=== PATIENT | female | born 1965 | race Caucasian/White ===

== ENCOUNTER 2017-07-02 15:15 | Inpatient (IN) | payer BC ==
[~2017-07-02] VITALS: Ht 165.1 cm; Wt 83.7 kg
[2017-07-02] VITALS (8 sets, daily range): BP systolic 112–132; BP diastolic 68–80; PULSE 74–89; RESP 16–18; O2SAT 95–100
[2017-07-02] MEDS ORDERED: SODIUM CHLOR 0.9% 1000 ML INJ 1,000 ML IV SCH (15:33)
[2017-07-02 15:56] LABS: AUTOMATED NEUTROPHIL # 10.1 TH/MM3 (1.8-7.7); BASOPHIL % 0.4 % (0.0-2.0); EOSINOPHIL # 0.1 TH/MM3 (0-0.4); HEMATOCRIT 40.6 % (35.0-46.0); HEMOGLOBIN 13.6 GM/DL (11.6-15.3); LYMPH % 7.9 % (9.0-44.0); LYMPHOCYTE # 0.9 TH/MM3 (1.0-4.8); MEAN CELL VOLUME 88.1 FL (80.0-100.0); MEAN CORPUSCULAR HEMOGLOBIN 29.5 PG (27.0-34.0); MEAN CORPUSCULAR HGB CONC 33.5 % (32.0-36.0); MEAN PLATELET VOLUME 7.9 FL (7.0-11.0); MONO % 2.3 % (0.0-8.0); MONOCYTE # 0.3 TH/MM3 (0-0.9); NEUT % 88.4 % (16.0-70.0); PLATELET COUNT 262 TH/MM3 (150-450); RED BLOOD COUNT 4.61 MIL/MM3 (4.00-5.30); RED CELL DISTRIBUTION WIDTH 11.9 % (11.6-17.2); WHITE BLOOD COUNT 11.4 TH/MM3 (4.0-11.0)
--- NOTE | 2017-07-02 16:03 | PD ---
HPI Chief Complaint: Syncope/Near-Syncope Time Seen by Provider: 15:22 Travel History International Travel<30 days: No Contact w/Intl Traveler<30days: No Traveled to known affect area: No History of Present Illness HPI Patient was seen and examined in the presence of a nurse at all times This is a 51-year-old female with no significant past medical history who presents after a syncopal episode. She states that she does not usually drink but drank a large amount of alcohol last night. Earlier today, after having a bowel movement (non bloody, no melena) she bent forward to steel pickler some laundry when she began to feel lightheaded. She states that she then appears to have passed out. She remembers waking up with pain on the back of her head, pain on her nose. She had vomited in her sink. She does not remember any o fthis. She denies any unilateral weakness, numbness, tingling. She states that she has been otherwise well recently without fever, chills, cough, congestion, vomiting , diarrhea. She denies chest pain, shortness of breath, palpitations. No urinary complaints. Symptoms are moderate in severity. Onset gradual. Aggravated by standing. Alleviated by rest. No prior treatment. PFSH Past Medical History Medical History: Denies Significant Hx Tetanus Vaccination: > 5 Years Influenza Vaccination: No ?: Not Menopausal: Yes Tubal Ligation: Yes Past Surgical History Section: Yes Oral Surgery: Yes (SINUS SURGERY) Tonsillectomy: Yes Family History Family Myocardial Infarction: Yes (Father had sudden cardiac at age 48) Social History Alcohol Use: Yes (OCCAS) Tobacco Use: No Substance Use: No Allergies-Medications (Allergen,Severity, Reaction): Coded Allergies: codeine (Verified Allergy, Severe, TACHYCARDIA & RESP DISTRESS, 07/02/17) Reported Meds & Prescriptions Reported Meds & Active Scripts Active Review of Systems Except as stated in HPI: all other systems reviewed are Neg Physical Exam Narrative GENERAL: Alert, well nourished, well appearing patient resting on the bed in no acute distress. Vital Signs reviewed SKIN: Focused skin assessment warm/dry. HEAD: There is hematoma on the left posterior scalp Normocephalic. EYES: Pupils equal and round. No scleral icterus. No injection or drainage. ENT: No nasal bleeding or discharge. Mucous membranes pink and moist. There is abrasion on bridge of nose. Mild tenderness on bridge of nose. No septal hematoma. Normal occlusion. NECK: Trachea midline. No JVD. Spontaneous, painless full range of motion with no meningismus CARDIOVASCULAR: Regular rate and rhythm. No murmur appreciated. Extremities warm and well perfused with bounding peripheral pulses RESPIRATORY: No accessory muscle use. Clear to auscultation. Breath sounds equal bilaterally. Breathing easily and speaking in full sentences GASTROINTESTINAL: Abdomen soft, non-tender, nondistended. Normal bowel sounds. No rigid, rebound, guarding MUSCULOSKELETAL: No obvious deformities. No clubbing. No cyanosis. No edema. Compartments are soft NEUROLOGICAL: Awake and alert. No obvious cranial nerve deficits. Motor grossly within normal limits. Normal speech. Sensation intact. Normal gait. No pronator drift Data Data Last Documented VS Vital Signs Date Time Temp Pulse Resp B/P (MAP) Pulse Ox O2 Delivery O2 Flow Rate FiO2 07/02/17 17:52 78 18 122/71 (88) 95 Room Air Orders Orders Electrocardiogram (07/02/17 15:30) Complete Blood Count With Diff (07/02/17 15:30) Comprehensive Metabolic Panel (07/02/17 15:30) Magnesium (Mg) (07/02/17 15:30) Ckmb (Isoenzyme) Profile (07/02/17 15:30) Troponin I (07/02/17 15:30) Act Partial Throm Time (Ptt) (07/02/17 15:30) Prothrombin Time / Inr (Pt) (07/02/17 15:30) Chest, Single Ap (07/02/17 15:30) Ct Brain W/O Iv Contrast(Rout) (07/02/17 15:30) Ct Cerv Spine W/O Contrast (07/02/17 15:30) Blood Glucose (07/02/17 15:30) Ecg Monitoring (07/02/17 15:30) Iv Access Insert/Monitor (07/02/17 15:30) Oximetry (07/02/17 15:30) Orthostatic Vital Signs (07/02/17 15:30) Ct Facial Bones W/O Iv Cont (07/02/17 15:30) Sodium Chlor 0.9% 1000 Ml Inj (Ns 1000 M (07/02/17 15:33) Urinalysis - C+S If Indicated (07/02/17 16:06) CKMB (07/02/17 15:50) CKMB% (07/02/17 15:50) Tetanus/Diphtheria Tox Adult (Tetanus/Di (07/02/17 16:30) Ct Pulmonary Angiogram (07/02/17 16:51) Iohexol 350 Inj (Omnipaque 350 Inj) (07/02/17 17:23) Consult Cardiology (07/02/17 ) Admit To Inpatient (07/02/17 ) Vital Signs (Adult) LUKASZ.Q4H (07/02/17 18:22) Activity Oob With Assistance (07/02/17 18:22) Newspaper Peddler / Telemetry LUKASZ.Q8H (07/02/17 18:22) Inpatient Certification (07/02/17 ) ^ Fall Precautions (07/02/17 18:22) Aspirin (Aspirin) (07/02/17 18:30) Admit Order (Ed Use Only) (07/02/17 18:23) (Hub Use Only)Inp Phy Cons/Ref (07/02/17 ) Labs Laboratory Tests Test 07/02/17 15:50 White Blood Count 11.4 TH/MM3 Red Blood Count 4.61 MIL/MM3 Hemoglobin 13.6 GM/DL Hematocrit 40.6 % Mean Corpuscular Volume 88.1 FL Mean Corpuscular Hemoglobin 29.5 PG Mean Corpuscular Hemoglobin Concent 33.5 % Red Cell Distribution Width 11.9 % Platelet Count 262 TH/MM3 Mean Platelet Volume 7.9 FL Neutrophils (%) (Auto) 88.4 % Lymphocytes (%) (Auto) 7.9 % Monocytes (%) (Auto) 2.3 % Eosinophils (%) (Auto) 1.0 % Basophils (%) (Auto) 0.4 % Neutrophils # (Auto) 10.1 TH/MM3 Lymphocytes # (Auto) 0.9 TH/MM3 Monocytes # (Auto) 0.3 TH/MM3 Eosinophils # (Auto) 0.1 TH/MM3 Basophils # (Auto) 0.0 TH/MM3 CBC Comment DIFF FINAL Differential Comment Prothrombin Time 10.6 SEC Prothromb Time International Ratio 1.0 RATIO Activated Partial Thromboplast Time 23.8 SEC Urine Color YELLOW Urine Turbidity CLEAR Urine pH 6.0 Urine Specific [place] 1.005 Urine Protein NEG mg/dL Urine Glucose (UA) NEG mg/dL Urine Ketones NEG mg/dL Urine Occult Blood NEG Urine Nitrite NEG Urine Bilirubin NEG Urine Leukocyte Esterase NEG Urine RBC 0-3 /hpf Urine Squamous Epithelial Cells 0-5 /hpf Microscopic Urinalysis Comment CULT NOT INDICATED Blood Urea Nitrogen 15 MG/DL Creatinine 0.95 MG/DL Random Glucose 98 MG/DL Total Protein 7.5 GM/DL Albumin 4.1 GM/DL Calcium Level 8.9 MG/DL Magnesium Level 2.3 MG/DL Alkaline Phosphatase 91 U/L Aspartate Amino Transf (AST/SGOT) 27 U/L Alanine Aminotransferase (ALT/SGPT) 33 U/L Total Bilirubin 0.3 MG/DL Sodium Level 140 MEQ/L Potassium Level 3.9 MEQ/L Chloride Level 107 MEQ/L Carbon Dioxide Level 26.6 MEQ/L Anion Gap 6 MEQ/L Estimat Glomerular Filtration Rate 62 ML/MIN Total Creatine Kinase 192 U/L Creatine Kinase MB 2.8 NG/ML Troponin I 0.19 NG/ML MDM Medical Decision Making Medical Screen Exam Complete: Yes Emergency Medical Condition: Yes Medical Record Reviewed: Yes Interpretation(s) EKG shows sinus rhythm with a rate of 80. No acute ST elevation Laboratory Tests Test 07/02/17 15:50 White Blood Count 11.4 TH/MM3 Red Blood Count 4.61 MIL/MM3 Hemoglobin 13.6 GM/DL Hematocrit 40.6 % Mean Corpuscular Volume 88.1 FL Mean Corpuscular Hemoglobin 29.5 PG Mean Corpuscular Hemoglobin Concent 33.5 % Red Cell Distribution Width 11.9 % Platelet Count 262 TH/MM3 Mean Platelet Volume 7.9 FL Neutrophils (%) (Auto) 88.4 % Lymphocytes (%) (Auto) 7.9 % Monocytes (%) (Auto) 2.3 % Eosinophils (%) (Auto) 1.0 % Basophils (%) (Auto) 0.4 % Neutrophils # (Auto) 10.1 TH/MM3 Lymphocytes # (Auto) 0.9 TH/MM3 Monocytes # (Auto) 0.3 TH/MM3 Eosinophils # (Auto) 0.1 TH/MM3 Basophils # (Auto) 0.0 TH/MM3 CBC Comment DIFF FINAL Differential Comment Prothrombin Time 10.6 SEC Prothromb Time International Ratio 1.0 RATIO Activated Partial Thromboplast Time 23.8 SEC Urine Color YELLOW Urine Turbidity CLEAR Urine pH 6.0 Urine Specific [place] 1.005 Urine Protein NEG mg/dL Urine Glucose (UA) NEG mg/dL Urine Ketones NEG mg/dL Urine Occult Blood NEG Urine Nitrite NEG Urine Bilirubin NEG Urine Leukocyte Esterase NEG Urine RBC 0-3 /hpf Urine Squamous Epithelial Cells 0-5 /hpf Microscopic Urinalysis Comment CULT NOT INDICATED Blood Urea Nitrogen 15 MG/DL Creatinine 0.95 MG/DL Random Glucose 98 MG/DL Total Protein 7.5 GM/DL Albumin 4.1 GM/DL Calcium Level 8.9 MG/DL Magnesium Level 2.3 MG/DL Alkaline Phosphatase 91 U/L Aspartate Amino Transf (AST/SGOT) 27 U/L Alanine Aminotransferase (ALT/SGPT) 33 U/L Total Bilirubin 0.3 MG/DL Sodium Level 140 MEQ/L Potassium Level 3.9 MEQ/L Chloride Level 107 MEQ/L Carbon Dioxide Level 26.6 MEQ/L Anion Gap 6 MEQ/L Estimat Glomerular Filtration Rate 62 ML/MIN Total Creatine Kinase 192 U/L Creatine Kinase MB 2.8 NG/ML Troponin I 0.19 NG/ML Last [address] Angiography 07/02/17 1651 Signed Impressions: Service Date/Time: June 17:16 - CONCLUSION: No evidence of pulmonary embolism Fred Dias MD Maxillofacial CT 07/02/17 1530 Signed Impressions: Service Date/Time: June 16:00 - CONCLUSION: No evidence of facial bone fracture Fred Dias MD Head CT 07/02/17 1530 Signed Impressions: Service Date/Time: June 16:00 - CONCLUSION: No acute intracranial process. Ferd Dias MD Chest X-Ray 07/02/17 1530 Signed Impressions: Service Date/Time: June 15:34 - CONCLUSION: No acute disease. Andrew Lawrence MD Cervical Spine CT 07/02/17 1530 Signed Impressions: Service Date/Time: June 16:00 - CONCLUSION: 1. Moderate degenerative disease at C5-6. 2. No evidence of acute bony or soft tissue abnormality. 3. Normal cervical alignment. Anrdew Lawrence MD Differential Diagnosis Syncope, arrhythmia, dehydration, vagal episode, orthostatic hypotension, unstable/atypical angina, PE, fracture, contusion, subdural hematoma Narrative Course The patient was placed on the child monitor. IV access was established. EKG , chest x-ray, labs and imaging were performed. Patient was given IV fluid bolus. She feels much better after IV fluids. Tetanus immunization was updated. Patient has elevated troponin. She adamantly and repeatedly denies any current or previous chest pain or shortness of breath. Her EKG is normal. I spoke with Dr. Pires who recommended admission to [facility]. He agreed with plan for aspirin but recommended against heparin drip at this time. He came and saw the patient in the emergency department. I reviewed the results of the workup with her. I also spoke with the admitting hospitalist. Diagnosis Primary Impression: NSTEMI, initial episode of care Additional Impression: Syncope and collapse Admitting Information Admitting Physician Requests: it Ibis Hernandez MD Jul 02, 2017 16:03
[2017-07-02 16:07] LABS: CHLORIDE 107 MEQ/L (98-107); SODIUM (NA) 140 MEQ/L (136-145)
[2017-07-02 16:10] LABS: ALBUMIN 4.1 GM/DL (3.4-5.0); BICARBONATE 26.6 MEQ/L (21.0-32.0); BLOOD UREA NITROGEN 15 MG/DL (7-18); CALCIUM 8.9 MG/DL (8.5-10.1); GLUCOSE,RANDOM 98 MG/DL (74-106); MAGNESIUM 2.3 MG/DL (1.5-2.5)
[2017-07-02 16:13] LABS: ALT (GPT) 33 U/L (10-53); AST (GOT) 27 U/L (15-37); CREATININE 0.95 MG/DL (0.50-1.00); GLOMERULAR FILTRATION RATE 62 ML/MIN (>89)
[2017-07-02 16:15] LABS: TOTAL BILIRUBIN ADULT 0.3 MG/DL (0.2-1.0); TOTAL PROTEIN 7.5 GM/DL (6.4-8.2)
[2017-07-02 16:16] LABS: ALKALINE PHOSPHATASE 91 U/L (45-117)
[2017-07-02 16:18] LABS: BILIRUBIN, URINE NEG (NEG); BLOOD, URINE NEG (NEG); GLUCOSE,URINE NEG (NEG); KETONE, URINE NEG (NEG); NITRITE,URINE NEG (NEG); TROPONIN I 0.19 NG/ML (0.02-0.05); URINE LEUKOCYTE ESTERASE NEG (NEG)
[2017-07-02 16:26] LABS: RBC, URINE 0-3 /hpf (0-3); SQUAMOUS EPITHELIAL CELL URINE 0-5 /hpf (0-5); URINE COLOR YELLOW (YELLW/STRAW)
[2017-07-02 16:27] LABS: PROTHROMBIN TIME - PATIENT 10.6 SEC (9.8-11.6)
--- NOTE | 2017-07-02 16:29 | RADRPT ---
EXAM DATE/TIME: 07/02/2017 16:00 [facility] COMPARISON: No previous studies available for comparison. INDICATIONS : Syncopal episode. Posterior head pain, jaw pain, neck pain and vomiting. RADIATION DOSE: 62.97 CTDIvol (mGy) MEDICAL HISTORY : None SURGICAL HISTORY : None. ENCOUNTER: Initial ACUITY: 1 day PAIN SCALE: 5/10 LOCATION: cranial TECHNIQUE: Multiple contiguous axial images were obtained of the head. Using automated exposure control and adj ustment of the mA and/or kV according to patient size, radiation dose was kept as low as reasonably a chievable to obtain optimal diagnostic quality images. DICOM format image data is available electro nically for review and comparison. FINDINGS: The ventricles are symmetric and normal. No abnormal extra-axial fluid collections are identified. Th ere is no evidence of intracranial hemorrhage or mass. There is nothing to suggest acute infarction. There is prominent left parietal high convexity scalp swelling. No evidence of underlying fracture. M inimal mucosal disease and occasional facial sinuses. CONCLUSION: No acute intracranial process. Fred Dias MD on July 02, 2017 at 16:27 Board Certified Radiologist. This report was verified electronically.
[2017-07-02] MEDS ORDERED: TETANUS/DIPHTHERIA TOXOID ADULT 0.5 ML VIAL IM ONE (16:30)
--- NOTE | 2017-07-02 16:34 | RADRPT ---
EXAM DATE/TIME: 07/02/2017 16:00 [facility] COMPARISON: No previous studies available for comparison. INDICATIONS : Syncopal episode. Posterior head pain, jaw pain, neck pain and vomiting. RADIATION DOSE: 25.38 CTDIvol (mGy) MEDICAL HISTORY : None SURGICAL HISTORY : None. ENCOUNTER: Initial ACUITY: 1 day PAIN SCORE: 5/10 LOCATION: facial TECHNIQUE: Volumetric scanning of the facial bones was performed. Using automated exposure control and adjustme nt of the mA and/or kV according to patient size, radiation dose was kept as low as reasonably achiev able to obtain optimal diagnostic quality images. DICOM format image data is available electronicall y for review and comparison. FINDINGS: There is mild mucosal thickening and occasional facial sinuses. There appears to been previous sinus surgery. There is no evidence of facial bone fracture. The orbits are symmetric and unremarkable. CONCLUSION: No evidence of facial bone fracture Fred Dias MD on July 02, 2017 at 16:31 Board Certified Radiologist. This report was verified electronically.
--- NOTE | 2017-07-02 16:45 | RADRPT ---
EXAM DATE/TIME: 07/02/2017 15:34 [facility] COMPARISON: No previous studies available for comparison. INDICATIONS : Patient states she passed out, then woke up vomitting with shortness of breath. MEDICAL HISTORY : None. SURGICAL HISTORY : Breast biopsy. ENCOUNTER: Initial ACUITY: 1 day PAIN SCORE: 0/10 LOCATION: Bilateral chest FINDINGS: A single view of the chest demonstrates the lungs to be symmetrically aerated without evidence of mas s, infiltrate or effusion. The cardiomediastinal contours are unremarkable. Osseous structures are intact. CONCLUSION: No acute disease. Andrew Lawrence MD on July 02, 2017 at 16:43 Board Certified Radiologist. This report was verified electronically.
--- NOTE | 2017-07-02 17:03 | RADRPT ---
EXAM DATE/TIME: 07/02/2017 16:00 [facility] COMPARISON: No previous studies available for comparison. INDICATIONS : Syncopal episode. Posterior head pain, jaw pain, neck pain and vomiting. RADIATION DOSE: 26.33 CTDIvol (mGy) MEDICAL HISTORY : None SURGICAL HISTORY : None. ENCOUNTER: Initial ACUITY: 1 day PAIN SCALE: 2/10 LOCATION: neck TECHNIQUE: Volumetric scanning of the cervical spine was performed. Multiplanar reconstructions in the sagittal, coronal and oblique axial planes were performed. Using automated exposure control and adjustment o f the mA and/or kV according to patient size, radiation dose was kept as low as reasonably achievable to obtain optimal diagnostic quality images. DICOM format image data is available electronically f or review and comparison. FINDINGS: VERTEBRAE: Normal vertebral body height. ALIGNMENT: No evidence of subluxation. C2-C3: The bony spinal canal is normal in size. No evidence of disc bulge or herniation. The neural forami na are bilaterally patent. C3-C4: The bony spinal canal is normal in size. No evidence of disc bulge or herniation. The neural forami na are bilaterally patent. C4-C5: The bony spinal canal is normal in size. No evidence of disc bulge or herniation. The neural forami na are bilaterally patent. C5-C6: Moderate degenerative disc disease with disc space narrowing, end plate sclerosis and marginal spondy losis is noted. C6-C7: The bony spinal canal is normal in size. No evidence of disc bulge or herniation. The neural forami na are bilaterally patent. C7-T1: The bony spinal canal is normal in size. No evidence of disc bulge or herniation. The neural forami na are bilaterally patent. CONCLUSION: 1. Moderate degenerative disease at C5-6. 2. No evidence of acute bony or soft tissue abnormality. 3. Normal cervical alignment. Andrew Lawrence MD on July 02, 2017 at 17:00 Board Certified Radiologist. This report was verified electronically.
[2017-07-02] MEDS ORDERED: IOHEXOL 350 MG/ML 10 ML VIAL (for RAD DIAG) IVCONTRAST ONE (17:23)
--- NOTE | 2017-07-02 17:41 | RADRPT ---
EXAM DATE/TIME: 07/02/2017 17:16 [facility] COMPARISON: No previous studies available for comparison. INDICATIONS : Syncopal episode. Evaluate for pulmonary embolism. IV CONTRAST: 75 cc Omnipaque 350 (iohexol) IV RADIATION DOSE: 12.44 CTDIvol (mGy) MEDICAL HISTORY : None SURGICAL HISTORY : Sinus surgery. ENCOUNTER: Initial ACUITY: 1 day PAIN SCALE: 0/10 LOCATION: chest TECHNIQUE: Volumetric scanning of the chest was performed using a pulmonary embolism protocol MIP images were re constructed. Using automated exposure control and adjustment of the mA and/or kV according to patien t size, radiation dose was kept as low as reasonably achievable to obtain optimal diagnostic quality images. DICOM format image data is available electronically for review and comparison. Follow-up recommendations for detected pulmonary nodules are based at a minimum on nodule size and pa tient risk factors according to Fleischner Society Guidelines. FINDINGS: PULMONARY ARTERIES: No filling defects are seen in the pulmonary arteries through the segmental level. LUNGS: There is no consolidation or pneumothorax . No concerning pulmonary nodule is visualized. PLEURAE: There is no pleural thickening or pleural effusion. MEDIASTINUM: There is good visualization of the great vessels of the middle mediastinum. No evidence of mediastin al or hilar adenopathy/mass. MUSCULOSKELETAL: Within normal limits for patient age. MISCELLANEOUS: Hepatic cysts. CONCLUSION: No evidence of pulmonary embolism Fred Dias MD on July 02, 2017 at 17:35 Board Certified Radiologist. This report was verified electronically.
[2017-07-02] MEDS ORDERED: ASPIRIN 325 MG TAB PO ONE (18:30)
--- NOTE | 2017-07-02 19:28 | HHI.HP ---
[facility] Primary [facility] Physician No Primary Care Physician Admission Diagnosis Syncope, elevated troponin, and concussion Diagnoses: Chief Complaint: fall, loss of consciousness Travel History International Travel<30 Days: No Contact w/Intl Traveler <30 Da: No Traveled to Known Affected Are: No History of Present Illness 51-year-old white female being admitted for possible N STEMI Patient was in her usual state of health until earlier this morning when she bent down and her son's bathroom to pear picker some towels and felt very lightheaded. She stood up and ambulated to the kitchen but still felt very lightheaded and then she has a poor recollection of what happened after that. She remembers waking up with a vague memory where she was dazed state lying in bed and somehow being able to ambulate over to the bathroom to vomit some dark emesis, denies any bloody component. Patient then went over to a chair and sat down and eventually she says she is able to fully regain consciousness and sharpness. She noted that she had some pain in the back of her head and noted a bruise and also noted a very red nose as well. She does report having some bloody drainage from her left nostril temporarily that self resolved. Patient denies having any shortness of breath, chest pain, or palpitations before during or after this entire episode. She denies any tongue biting, urinary incontinence, or fecal incontinence. She denies having any focal numbness, tingling, or weakness in any of her extremities. Denies having any acute unilateral visual field changes or vision loss. Denies any abdominal pain. Review of Systems Except as stated in HPI: all other systems reviewed are Neg Past Family Social History Past Medical History Migraines in the past Past Surgical History Allergies: Coded Allergies: codeine (Verified Allergy, Severe, TACHYCARDIA & RESP DISTRESS, 07/02/17) Family History 3 brothers with type 1 diabetes, one brother of throat cancer, the other one of suspected hypoglycemia from insulin overdose, father of heart attack before the age of 50 Social History Denies smoking. Reports drinking socially. 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 EYES: Pupils equal and round. No scleral icterus. No injection or drainage. ENT: No nasal bleeding or discharge. Mucous membranes pink and moist. TMs clear and intact. No Reynolds sign evident; no mastoid TTP BL CARDIOVASCULAR: Regular rate and rhythm. no murmurs RESPIRATORY: No accessory muscle use. Clear to auscultation. Breath sounds equal bilaterally. GASTROINTESTINAL: Abdomen soft, non-tender, nondistended. Hepatic and splenic margins not palpable. Extremities: No clubbing, cyanosis, or edema. No obvious deformities. MUSCULOSKELETAL: grossly intact ROM with adequate muscle bulk and tone for age and habitus. NEUROLOGICAL: Awake and alert. No obvious cranial nerve deficits. No facial droop nor slurred speech noted. Patellar reflexes are +2 in bilateral lower extremities. EOMI. No nystagmus noted. Uvula and tongue are midline. intact sensation to light finger touch symmetrically over face distal upper extremities and lower extremities BL. PSYCHIATRIC: Appropriate mood and affect; insight and judgment normal. Laboratory Laboratory Tests Test 07/02/17 15:50 White Blood Count 11.4 Red Blood Count 4.61 Hemoglobin 13.6 Hematocrit 40.6 Mean Corpuscular Volume 88.1 Mean Corpuscular Hemoglobin 29.5 Mean Corpuscular Hemoglobin Concent 33.5 Red Cell Distribution Width 11.9 Platelet Count 262 Mean Platelet Volume 7.9 Neutrophils (%) (Auto) 88.4 Lymphocytes (%) (Auto) 7.9 Monocytes (%) (Auto) 2.3 Eosinophils (%) (Auto) 1.0 Basophils (%) (Auto) 0.4 Neutrophils # (Auto) 10.1 Lymphocytes # (Auto) 0.9 Monocytes # (Auto) 0.3 Eosinophils # (Auto) 0.1 Basophils # (Auto) 0.0 CBC Comment DIFF FINAL Differential Comment Prothrombin Time 10.6 Prothromb Time International Ratio 1.0 Activated Partial Thromboplast Time 23.8 Urine Color YELLOW Urine Turbidity CLEAR Urine pH 6.0 Urine Specific [place] 1.005 Urine Protein NEG Urine Glucose (UA) NEG Urine Ketones NEG Urine Occult Blood NEG Urine Nitrite NEG Urine Bilirubin NEG Urine Leukocyte Esterase NEG Urine RBC 0-3 Urine Squamous Epithelial Cells 0-5 Microscopic Urinalysis Comment CULT NOT INDICATED Blood Urea Nitrogen 15 Creatinine 0.95 Random Glucose 98 Total Protein 7.5 Albumin 4.1 Calcium Level 8.9 Magnesium Level 2.3 Alkaline Phosphatase 91 Aspartate Amino Transf (AST/SGOT) 27 Alanine Aminotransferase (ALT/SGPT) 33 Total Bilirubin 0.3 Sodium Level 140 Potassium Level 3.9 Chloride Level 107 Carbon Dioxide Level 26.6 Anion Gap 6 Estimat Glomerular Filtration Rate 62 Total Creatine Kinase 192 Creatine Kinase MB 2.8 Troponin I 0.19 Result Diagram: 07/02/17 1550 07/02/17 [address] Angiography 07/02/17 1651 Signed Impressions: Service Date/Time: June 17:16 - CONCLUSION: No evidence of pulmonary embolism Fred Dias MD Maxillofacial CT 07/02/17 1530 Signed Impressions: Service Date/Time: June 16:00 - CONCLUSION: No evidence of facial bone fracture Fred Dias MD Head CT 07/02/17 1530 Signed Impressions: Service Date/Time: June 16:00 - CONCLUSION: No acute intracranial process. Fred Dias MD Chest X-Ray 07/02/17 1530 Signed Impressions: Service Date/Time: June 15:34 - CONCLUSION: No acute disease. Andrew Lawrence MD Cervical Spine CT 07/02/17 1530 Signed Impressions: Service Date/Time: June 16:00 - CONCLUSION: 1. Moderate degenerative disease at C5-6. 2. No evidence of acute bony or soft tissue abnormality. 3. Normal cervical alignment. MD Charli Love VTE Risk Assessment Charli VTE Risk Assessment: Mod/High Risk (score >= 2) Vanrini Risk Assessment Model Point Value = 1 Point Value = 2 Point Value = 3 Point Value = 5 Age 41-60 Minor surgery BMI > 25 kg/m2 Swollen legs Varicose veins or History of unexplained or recurrent spontaneous Oral contraceptives or hormone replacement Sepsis (< 1 month) Serious lung disease, including pneumonia (< 1 month) Abnormal pulmonary function Acute myocardial infarction Congestive heart failure (< 1 month) History of inflammatory bowel disease Medical patient at bed rest Age 61-74 Arthroscopic surgery Major open surgery (> 45 min) Laparoscopic surgery (> 45 min) Malignancy Confined to bed (> 72 hours) Immobilizing plaster cast Central venous access Age >= 75 History of VTE Family history of VTE Factor V Leiden Prothrombin [id number] Lupus anticoagulant Anticardiolipin antibodies Elevated serum homocysteine Heparin-induced thrombocytopenia Other congenital or acquired thrombophilia Stroke (< 1 month) Elective arthroplasty Hip, pelvis, or leg fracture Acute spinal cord injury (< 1 month) Prophylaxis Regimen Total Risk Factor Score Risk Level Prophylaxis Regimen 0-1 Low Early ambulation 2 Moderate Order ONE of the following: *Sequential Compression Device (SCD) *Heparin 5000 units SQ BID 3-4 Higher Order ONE of the following medications: *Heparin 5000 units SQ TID *Enoxaparin/Lovenox 40 mg SQ daily (WT < 150 kg, CrCl > 30 mL/min) *Enoxaparin/Lovenox 30 mg SQ daily (WT < 150 kg, CrCl > 10-29 mL/min) *Enoxaparin/Lovenox 30 mg SQ BID (WT < 150 kg, CrCl > 30 mL/min) AND/OR *Sequential Compression Device (SCD) 5 or more Highest Order ONE of the following medications: *Heparin 5000 units SQ TID (Preferred with Epidurals) *Enoxaparin/Lovenox 40 mg SQ daily (WT < 150 kg, CrCl > 30 mL/min) *Enoxaparin/Lovenox 30 mg SQ daily (WT < 150 kg, CrCl > 10-29 mL/min) *Enoxaparin/Lovenox 30 mg SQ BID (WT < 150 kg, CrCl > 30 mL/min) AND *Sequential Compression Device (SCD) Assessment and Plan Problem List: (1) NSTEMI, initial episode of care ICD Code: I21.4 - Non-ST elevation (NSTEMI) myocardial infarction (2) Syncope and collapse ICD Code: R55 - Syncope and collapse (3) Syncope anginosa ICD Code: I20.8 - Other forms of angina pectoris (4) Concussion ICD Code: S06.0X9A - Concussion with loss of consciousness of unspecified duration, initial encounter Assessment and Plan 51-year-old white female being admitted for syncope Syncope - With elevated troponin, investigating cardiac etiology is imperative for a possible NSTEMI. I independently reviewed EKG and see sinus rhythm. We will trend troponins, place on telemetry. Cardiology consulted. Aspirin given, will hold any further doses for now given epistaxis hx w/ substantial cranial contusions until cleared by neurology or insisted by cardiology. -orthostatic v/s overall negative. -CT angiogram is negative for pulmonary embolism,. s/p fluid bolus. Amnesia 2/2 possible concussion - CT head neg. Wonder if this is due to prolonged convulsive syncope versus concussion. Will obtain B12, TSH levels for now. - neurology consult - fall precautions - neurochecks w/ telemetry given amnesia to monitor for signs of ICP Facial contusion w/ epistaxis - possibly fx not seen on CT vs soft tissue contusion/tear within nostrils; monitor; will hold any further doses of aspirin for now until cleared by neurology SCDs Physician Certification 2 Midnight Certification Type: Admission for Inpatient Services Order for Inpatient Services The services are ordered in accordance with Medicare regulations or non- Medicare payer requirements, as applicable. In the case of services not specified as inpatient-only, they are appropriately provided as inpatient services in accordance with the 2-midnight benchmark. Estimated LOS (days): 2 2 days is the estimated time the patient will need to remain in the hospital, assuming treatment plan goals are met and no additional complications. Post-Hospital Plan: Not yet determined Jordon Hearn MD Jul 02, 2017 19:28
[2017-07-03] VITALS (9 sets, daily range): BP systolic 111–132; BP diastolic 67–81; PULSE 67–79; RESP 12–19; TEMP 97.9–98.7; O2SAT 97–100
[2017-07-03 02:16] LABS: AUTOMATED NEUTROPHIL # 3.8 TH/MM3 (1.8-7.7); BASOPHIL % 0.5 % (0.0-2.0); EOSINOPHIL # 0.3 TH/MM3 (0-0.4); EOSINOPHIL % 4.4 % (0.0-4.0); HEMATOCRIT 33.7 % (35.0-46.0); HEMOGLOBIN 11.7 GM/DL (11.6-15.3); LYMPH % 32.7 % (9.0-44.0); LYMPHOCYTE # 2.3 TH/MM3 (1.0-4.8); MEAN CELL VOLUME 86.4 FL (80.0-100.0); MEAN CORPUSCULAR HGB CONC 34.8 % (32.0-36.0); MEAN PLATELET VOLUME 7.9 FL (7.0-11.0); MONO % 9.1 % (0.0-8.0); MONOCYTE # 0.7 TH/MM3 (0-0.9); NEUT % 53.3 % (16.0-70.0); PLATELET COUNT 213 TH/MM3 (150-450); RED CELL DISTRIBUTION WIDTH 12.6 % (11.6-17.2); WHITE BLOOD COUNT 7.2 TH/MM3 (4.0-11.0)
[2017-07-03 02:31] LABS: BICARBONATE 29.8 MEQ/L (21.0-32.0); CALCIUM 8.2 MG/DL (8.5-10.1); CREATININE 0.95 MG/DL (0.50-1.00); MAGNESIUM 2.2 MG/DL (1.5-2.5)
[2017-07-03 02:35] LABS: TROPONIN I 0.07 NG/ML (0.02-0.05)
--- NOTE | 2017-07-03 07:06 | MB ---
cc: CALE ZIEGLER M.D. DATE OF CONSULTATION 07/02/2017 REASON FOR CONSULTATION Lilibeth is a very pleasant 51-year-old lady. She presented to the ER after a syncopal event. She describes having a bowel movement walking across the hallway to picker/puller her son's laundry. She then became lightheaded and then she does not recall any further events other than "waking up" and 45 minutes elapsing on her cell phone. She did have some head trauma with a negative head CT in the ER. She denies any associated chest pain, shortness of breath, bowel or bladder incontinence, focal weakness, numbness or other focal neurologic complaints. Denies any GI or bleeding, PND, or orthopnea. PAST MEDICAL HISTORY As per history of present illness. She has a history of: 1. Sinus surgery 2. section 3. Tonsillectomy FAMILY HISTORY Father had a cardiac at the age of 48. SOCIAL HISTORY Drinks alcohol occasionally. Denies tobacco use. ALLERGIES CODEINE MEDICATIONS PRIOR TO ADMISSION Medications in the ER Aspirin 325 once and started daily. PHYSICAL EXAM Sats 95% on room air, blood pressure 122/71, pulse 78, respiratory rate 18. GENERAL: She is alert and oriented times three in no acute distress. NECK: Supple. No JVD or bruits. CARDIOVASCULAR: S1 and S2. No murmurs, rubs or gallops. LUNGS: Clear to auscultation bilaterally. ABDOMEN: Soft, nontender, positive bowel sounds. EXTREMITIES: Without clubbing, cyanosis or edema. LABS White count 1.4, hemoglobin 13.6, hematocrit 40.6, platelet count 262. Sodium 148, potassium 4.9, chloride 107, bicarb 26.6, BUN 15, creatinine 0.95, troponin is 0.19. ALT 33, AST 27, INR 1.0. EKG with a history of normal sinus rhythm at 80 beats per minute. The corrected QT interval is [address] of the chest and head CT are negative per Dr. Cintron. CT of the brain shows no acute intracranial process. Maxillofacial CT cannot be obtained from the computer. FINAL DIAGNOSIS 1. Non-STEMI 2. Syncope 3. Altered mental status 4. Elevated white count DISCUSSION At this point in time, it is unclear whether she had a primary neurologic event or a primary cardiovascular event. Given her prolonged loss of consciousness, I do think a primary neurovascular evaluation is indicated prior to further cardiac evaluation. If a primary neurologic etiology cannot be determined for her presentation, I do think the patient should have a left heart catheterization to evaluate if there is no neurologic contraindications. We will get a neurology consult. Patient has been started on aspirin by Dr. Cintron in the ER. I have explained the plan in detail to the patient and her and they understand and agree. Certainly recommend to continue telemetry monitoring. Also recommend a 2-D echo and a carotid ultrasound as well. MD CHRISTINE Ball/RAEGAN /7:49 PM /6:40 AM
[2017-07-03] MEDS ORDERED: ASPIRIN 325 MG TAB PO SCH (09:00)
[2017-07-03] MEDS ORDERED: ACETAMINOPHEN 325 MG TAB PO PRN (09:30)
--- NOTE | 2017-07-03 09:34 | HHI.PR ---
Subjective Remarks Pt complains of a mild headache but doesn't need any pain meds at this time. Denies any CP/SOB/lightheadedness or dizziness. Objective Vitals Vital Signs Date Time Temp Pulse Resp B/P (MAP) Pulse Ox O2 Delivery O2 Flow Rate FiO2 07/03/17 08:00 98.1 72 18 116/80 (92) 100 07/03/17 07:00 78 07/03/17 04:00 98.7 72 18 120/67 (84) 98 07/03/17 00:00 97.9 68 18 119/81 (94) 99 07/03/17 00:00 68 07/02/17 22:51 88 16 119/74 (89) 99 07/02/17 22:20 74 16 112/68 (83) 99 Room Air 07/02/17 20:31 88 16 122/75 (91) 100 Room Air 07/02/17 17:52 78 18 122/71 (88) 95 Room Air 07/02/17 16:41 77 18 112/72 (85) 83 18 113/77 (89) 90 18 124/79 (94) 07/02/17 16:30 80 18 113/76 (88) 95 Room Air 07/02/17 15:34 96 Room Air 07/02/17 15:31 89 18 132/80 (97) 96 I/O 07/02/17 07/02/17 07/02/17 07/03/17 07/03/17 07/03/17 07:00 15:00 23:00 07:00 15:00 23:00 Intake Total 1000 ml Output Total 1000 ml Balance 0 ml Intake IV Total 1000 ml Output Urine Total 1000 ml # Voids 5 3 Result Diagram: 07/03/17 0135 07/03/17 [address] Angiography 07/02/17 1651 Signed Impressions: Service Date/Time: June 17:16 - CONCLUSION: No evidence of pulmonary embolism Fred Dias MD Maxillofacial CT 07/02/17 1530 Signed Impressions: Service Date/Time: June 16:00 - CONCLUSION: No evidence of facial bone fracture Fred Dias MD Head CT 07/02/17 1530 Signed Impressions: Service Date/Time: June 16:00 - CONCLUSION: No acute intracranial process. Fred Dias MD Chest X-Ray 07/02/17 1530 Signed Impressions: Service Date/Time: June 15:34 - CONCLUSION: No acute disease. Andrew Lawrence MD Cervical Spine CT 07/02/17 1530 Signed Impressions: Service Date/Time: June 16:00 - CONCLUSION: 1. Moderate degenerative disease at C5-6. 2. No evidence of acute bony or soft tissue abnormality. 3. Normal cervical alignment. Andrew Lawrence MD Objective Remarks GENERAL: Young female, lying in bed, awake, alert, appears comfortable. EYES: EOMI ENT: No nasal bleeding or discharge. CARDIOVASCULAR: Regular rate and rhythm. no murmurs RESPIRATORY: No accessory muscle use. Clear to auscultation. Breath sounds equal bilaterally. GASTROINTESTINAL: Abdomen soft, non-tender, nondistended. Extremities: No edema. No obvious deformities. MUSCULOSKELETAL: grossly intact . moves extremities. NEUROLOGICAL: Awake and alert. No obvious cranial nerve deficits. No facial droop nor slurred speech noted. PSYCHIATRIC: Appropriate mood and affect; insight and judgment normal. A/P Problem List: (1) NSTEMI, initial episode of care ICD Code: I21.4 - Non-ST elevation (NSTEMI) myocardial infarction (2) Syncope and collapse ICD Code: R55 - Syncope and collapse (3) Syncope anginosa ICD Code: I20.8 - Other forms of angina pectoris (4) Concussion ICD Code: S06.0X9A - Concussion with loss of consciousness of unspecified duration, initial encounter Assessment and Plan 51-year-old white female being admitted for syncope Syncope - serial trop elevated. Dr. Pires evaluated the pt and recommends a neuro eval first. Pt denies any chest pains. Aspirin given, but was held due to epistaxis and hx w/ substantial cranial contusions. Awaiting final recs from neuro regarding resuming ASA. CT head was neg. -orthostatic v/s overall negative. -CT angiogram is negative for pulmonary embolism,. s/p fluid bolus. Amnesia 2/2 possible concussion - CT head neg. B12, TSH levels wnl - neurology consult pending - fall precautions - neurochecks w/ telemetry given amnesia to monitor for signs of ICP Facial contusion w/ epistaxis - possibly fx not seen on CT vs soft tissue contusion/tear within nostrils; monitor; will hold any further doses of aspirin for now until cleared by neurology SCDs Discharge Planning continue to monitor pt closely. awaiting recs from neuro appreciate input from Frances Durham MD Jul 03, 2017 09:33
[2017-07-03] MEDS ORDERED: POTASSIUM CHLORIDE 20 MEQ CONTROLLED RELEASE TAB PO ONE (10:00)
--- NOTE | 2017-07-03 10:56 | RADRPT ---
EXAM DATE/TIME: 07/03/2017 09:40 [facility] COMPARISON: No previous studies available for comparison. INDICATIONS : Syncope. MEDICAL HISTORY : Migraines. SURGICAL HISTORY : Tonsillectomy. section. Tubal ligation. Sinus surgery. ENCOUNTER: Initial ACUITY: 1 day PAIN SCORE: 3/10 LOCATION: Bilateral neck PEAK SYSTOLIC VELOCITIES (cm/sec): ICA/CCA RATIO: Right: 1.0 Left: 0.8 ICA: Right: 71.0 Left: 68.6 CCA: Right: 68.2 Left: 82.8 ECA: Right: 96.0 Left: 81.8 VERTEBRAL: Right: 39.6 antegrade Left: 49.7 antegrade Elevated flow velocities and ICA/CCA ratios have been found to correlate with increased degrees of vessel stenosis, calculated as percentage of diameter relative to a normal segment of distal ICA/CCA FINDINGS: RIGHT CAROTID: No significant stenosis is visualized. The waveforms are within normal limits. LEFT CAROTID: No significant stenosis is visualized. The waveforms are within normal limits. VERTEBRAL ARTERIES: Antegrade flow is seen in both vertebral arteries. MISCELLANEOUS: None. CONCLUSION: Negative for hemodynamically significant stenosis. Jerrod Acevedo MD FACR on July 03, 2017 at 10:54 Board Certified Radiologist. This report was verified electronically.
--- NOTE | 2017-07-03 11:06 | PD.CARD.PN ---
Subjective Subjective Remarks alert in nad, denies chest pain Objective Medications Current Medications Medications (Trade) Dose Ordered Sig/Karen Route Start Time Stop Time Status Last Admin (Tylenol) 650 mg Q6HR PRN PO 07/03/17 09:30 Vital Signs / I&O Vital Signs Date Time Temp Pulse Resp B/P (MAP) Pulse Ox O2 Delivery O2 Flow Rate FiO2 07/03/17 08:00 98.1 72 18 116/80 (92) 100 07/03/17 07:00 78 07/03/17 04:00 98.7 72 18 120/67 (84) 98 07/03/17 00:00 97.9 68 18 119/81 (94) 99 07/03/17 00:00 68 07/02/17 22:51 88 16 119/74 (89) 99 07/02/17 22:20 74 16 112/68 (83) 99 Room Air 07/02/17 20:31 88 16 122/75 (91) 100 Room Air 07/02/17 17:52 78 18 122/71 (88) 95 Room Air 07/02/17 16:41 77 18 112/72 (85) 83 18 113/77 (89) 90 18 124/79 (94) 07/02/17 16:30 80 18 113/76 (88) 95 Room Air 07/02/17 15:34 96 Room Air 07/02/17 15:31 89 18 132/80 (97) 96 I/O 07/02/17 07/02/17 07/02/17 07/03/17 07/03/17 07/03/17 07:00 15:00 23:00 07:00 15:00 23:00 Intake Total 1000 ml Output Total 1000 ml Balance 0 ml Intake IV Total 1000 ml Output Urine Total 1000 ml # Voids 5 3 Laboratory GENERAL: SKIN: Warm and dry. HEAD: Normocephalic. EYES: No scleral icterus. No injection or drainage. NECK: Supple, trachea midline. No JVD or lymphadenopathy. CARDIOVASCULAR: Regular rate and rhythm without murmurs, gallops, or rubs. RESPIRATORY: Breath sounds equal bilaterally. No accessory muscle use. GASTROINTESTINAL: Abdomen soft, non-tender, nondistended. MUSCULOSKELETAL: No cyanosis, or edema. BACK: Nontender without obvious deformity. No CVA tenderness. Laboratory Tests Test 07/02/17 15:50 07/02/17 20:20 07/02/17 23:15 07/03/17 01:35 White Blood Count 11.4 TH/MM3 7.2 TH/MM3 Red Blood Count 4.61 MIL/MM3 3.90 MIL/MM3 Hemoglobin 13.6 GM/DL 11.7 GM/DL Hematocrit 40.6 % 33.7 % Mean Corpuscular Volume 88.1 FL 86.4 FL Mean Corpuscular Hemoglobin 29.5 PG 30.0 PG Mean Corpuscular Hemoglobin Concent 33.5 % 34.8 % Red Cell Distribution Width 11.9 % 12.6 % Platelet Count 262 TH/MM3 213 TH/MM3 Mean Platelet Volume 7.9 FL 7.9 FL Neutrophils (%) (Auto) 88.4 % 53.3 % Lymphocytes (%) (Auto) 7.9 % 32.7 % Monocytes (%) (Auto) 2.3 % 9.1 % Eosinophils (%) (Auto) 1.0 % 4.4 % Basophils (%) (Auto) 0.4 % 0.5 % Neutrophils # (Auto) 10.1 TH/MM3 3.8 TH/MM3 Lymphocytes # (Auto) 0.9 TH/MM3 2.3 TH/MM3 Monocytes # (Auto) 0.3 TH/MM3 0.7 TH/MM3 Eosinophils # (Auto) 0.1 TH/MM3 0.3 TH/MM3 Basophils # (Auto) 0.0 TH/MM3 0.0 TH/MM3 CBC Comment DIFF FINAL DIFF FINAL Differential Comment Prothrombin Time 10.6 SEC Prothromb Time International Ratio 1.0 RATIO Activated Partial Thromboplast Time 23.8 SEC Urine Color YELLOW Urine Turbidity CLEAR Urine pH 6.0 Urine Specific [place] 1.005 Urine Protein NEG mg/dL Urine Glucose (UA) NEG mg/dL Urine Ketones NEG mg/dL Urine Occult Blood NEG Urine Nitrite NEG Urine Bilirubin NEG Urine Leukocyte Esterase NEG Urine RBC 0-3 /hpf Urine Squamous Epithelial Cells 0-5 /hpf Microscopic Urinalysis Comment CULT NOT INDICATED Blood Urea Nitrogen 15 MG/DL 18 MG/DL Creatinine 0.95 MG/DL 0.95 MG/DL Random Glucose 98 MG/DL 80 MG/DL Total Protein 7.5 GM/DL Albumin 4.1 GM/DL Calcium Level 8.9 MG/DL 8.2 MG/DL Magnesium Level 2.3 MG/DL 2.2 MG/DL Alkaline Phosphatase 91 U/L Aspartate Amino Transf (AST/SGOT) 27 U/L Alanine Aminotransferase (ALT/SGPT) 33 U/L Total Bilirubin 0.3 MG/DL Sodium Level 140 MEQ/L 142 MEQ/L Potassium Level 3.9 MEQ/L 3.4 MEQ/L Chloride Level 107 MEQ/L 107 MEQ/L Carbon Dioxide Level 26.6 MEQ/L 29.8 MEQ/L Anion Gap 6 MEQ/L 5 MEQ/L Estimat Glomerular Filtration Rate 62 ML/MIN 62 ML/MIN Total Creatine Kinase 192 U/L Creatine Kinase MB 2.8 NG/ML Troponin I 0.19 NG/ML 0.14 NG/ML 0.07 NG/ML Vitamin B12 Level 269 PG/ML Thyroid Stimulating Hormone 3rd Gen 2.050 uIU/ML Nasal Screen MRSA (PCR) MRSA NOT DETECTED Imaging Last [address] Angiography 07/02/17 1651 Signed Impressions: Service Date/Time: June 17:16 - CONCLUSION: No evidence of pulmonary embolism Fred Dias MD Maxillofacial CT 07/02/17 1530 Signed Impressions: Service Date/Time: June 16:00 - CONCLUSION: No evidence of facial bone fracture Fred Dias MD Head CT 07/02/17 1530 Signed Impressions: Service Date/Time: June 16:00 - CONCLUSION: No acute intracranial process. Fred Dias MD Chest X-Ray 07/02/17 1530 Signed Impressions: Service Date/Time: June 15:34 - CONCLUSION: No acute disease. Andrew Lawrence MD Cervical Spine CT 07/02/17 1530 Signed Impressions: Service Date/Time: June 16:00 - CONCLUSION: 1. Moderate degenerative disease at C5-6. 2. No evidence of acute bony or soft tissue abnormality. 3. Normal cervical alignment. Andrew Lawrence MD Assessment and Plan Problem List: (1) Syncope and collapse ICD Codes: R55 - Syncope and collapse (2) NSTEMI, initial episode of care ICD Codes: I21.4 - Non-ST elevation (NSTEMI) myocardial infarction (3) Concussion ICD Codes: S06.0X9A - Concussion with loss of consciousness of unspecified duration, initial encounter Assessment and Plan 1.) Syncoipe/nstemi - f/u neuro eval and recs Maximilian Pires MD Jul 03, 2017 11:05
--- NOTE | 2017-07-03 19:02 | MB ---
cc: YUNIER CASTILLO MD PHD DATE OF CONSULTATION 07/03/17 REASON FOR CONSULTATION Loss of consciousness. HISTORY OF PRESENT ILLNESS Ms. Alas is a very nice 51-year-old woman in her usual state of health until yesterday. The night before she states she had been out and had some alcohol to drink. She was feeling well the next day. Yesterday morning she bent under a cabinet to poultry picker some towels, then felt lightheaded. She stood up, was able to walk a short distance and then apparently passed out. She struck her head resulting in a large hematoma. She thinks she may have been out for about a half an hour or so. When she woke up, she was somewhat confused and disoriented, but after 15 or 20 minutes regained consciousness, back to her normal self. It was not witnessed. There was no tongue biting, no bladder incontinence. She came to the ER. She has also been evaluated by cardiology because of elevated troponins initially. She denied any cardiac symptoms, chest pain, palpitations, etc. She has never had any seizure activity or loss of consciousness. She denies any focal weakness or numbness. PERSONAL HISTORY 1. History of migraine headaches in the past, 2. . ALLERGIES CODEINE MEDICATIONS Current are Tylenol as needed. NEUROLOGIC EXAMINATION VITAL SIGNS: Blood pressure is 132/78, pulse 72, respirations 18, temperature 98 degrees. Higher cortical functions at this time are completely normal. Cranial nerves are intact. Motor exam 5/5 strength of all groups in both upper and lower extremities. There is no drift. Fine motor skills are normal. Reflexes are symmetric. IMAGING STUDIES CT of the brain - no acute change is present. Maxillofacial CT is negative. Cervical spine CT - no fracture. LABORATORY DATA White count is 7.2, hemoglobin 11.7, hematocrit 33.7%, platelet count 213,000, PT 10.6, INR one, APTT 23.8. Sodium is 142, potassium 3.4, chloride 107. CO2 29.8, BUN is 18, creatinine 0.95, GFR is 62, glucose of 80, AST 27, ALT 33, alk phos 91, TSH 2.050. B12 is 269. IMPRESSION The history is suggestive of probable syncope. She probably had a prolonged episode of loss of consciousness with some confusion upon awakening due to head trauma associated with the syncope, probably a mild concussion. Seizure would also be in the differential, rule out stroke, although I think less likely. RECOMMENDATIONS I would like to proceed with an MRI of the brain as well as an EEG for further evaluation. MD CHELO Benites/ /6:01 PM /6:43 PM
[2017-07-03] MEDS ORDERED: GADODIAMIDE PF 287 MG/ML 5 ML VIAL (for RAD MRI) IV PUSH ONE (21:50)
--- NOTE | 2017-07-03 22:27 | RADRPT ---
EXAM DATE/TIME: 07/03/2017 21:32 [facility] COMPARISON: No previous studies available for comparison. INDICATIONS : Syncope. CONTRAST: 16 cc Omniscan (gadodiamide) IV MEDICAL HISTORY : Migraines. SURGICAL HISTORY : Tonsillectomy. section. Tubal ligation. Sinus. ENCOUNTER: Subsequent ACUITY: 1 day PAIN SCORE: 0/10 LOCATION: cranial TECHNIQUE: Multiplanar, multisequence MRI of the brain was performed both prior to and following the administrat ion of paramagnetic contrast. FINDINGS: CEREBRUM: The ventricles are normal for age. No evidence of midline shift, mass lesion, hemorrhage or acute in farction. No extraaxial fluid collections are seen. The pituitary gland and suprasellar cistern are normal in configuration. WHITE MATTER: No significant signal abnormalities are seen in the white matter. POSTERIOR FOSSA: The cerebellum and brainstem are intact. The 4th ventricle is midline. The cerebellopontine angle is unremarkable. The cerebellar tonsils are normal in position. DIFFUSION IMAGING: No focal areas of restricted diffusion are seen. No evidence of acute infarction. EXTRACRANIAL: The visualized portions of the orbits and paranasal sinuses are unremarkable. There is left parietal scalp swelling and hemorrhage. POST-CONTRAST: No abnormal areas of parenchymal or dural enhancement. No evidence of blood-brain barrier breakdown. CONCLUSION: 1. Unremarkable MRI of the brain. Left parietal scalp swelling/hemorrhage. No abnormal enhancement. N o recent infarct. Reggie Bella MD on July 03, 2017 at 22:22 Board Certified Radiologist. This report was verified electronically.
[2017-07-04] VITALS (13 sets, daily range): BP systolic 110–128; BP diastolic 68–81; PULSE 67–106; RESP 12–24; TEMP 98.1–99.1; O2SAT 95–98
--- NOTE | 2017-07-04 00:56 | EKG ---
Date Performed: 07/02/2017 Time Performed: 15:31:13 PTAGE: 51 years EKG: Sinus rhythm POSSIBLE LEFT ATRIAL ENLARGEMENT BORDERLINE ECG NO PREVIOUS TRACING DOCTOR: Berenice Renee Interpretating Date/Time 07/04/2017 00:54:36
--- NOTE | 2017-07-04 08:36 | HHI.PR ---
Subjective Remarks Patient feels well this morning. She denies any loss of consciousness. No nausea or vomiting, mild headache but tolerable. Denies any chest pains or shortness of breath. She is eager to go home. Discussed with RN, no concerns at this time. Objective Vitals Vital Signs Date Time Temp Pulse Resp B/P (MAP) Pulse Ox O2 Delivery O2 Flow Rate FiO2 07/04/17 08:00 68 07/04/17 06:00 69 07/04/17 04:00 67 07/04/17 04:00 98.3 84 17 118/76 (90) 97 07/04/17 02:00 68 07/04/17 00:00 98.1 74 19 115/68 (84) 97 07/04/17 00:00 74 07/03/17 23:00 70 07/03/17 20:00 98.4 72 19 130/70 (90) 97 07/03/17 16:00 98.0 72 18 132/78 (96) 97 07/03/17 15:00 79 07/03/17 12:00 98.2 67 12 111/71 (84) 100 I/O 07/03/17 07/03/17 07/03/17 07/04/17 07/04/17 07/04/17 07:00 15:00 23:00 07:00 15:00 23:00 Intake Total 0 ml 460 ml Balance 0 ml 460 ml Intake Oral 0 ml 460 ml # Voids 3 4 4 # Bowel Movements 0 0 Result Diagram: 07/03/17 0135 07/03/17 0135 Imaging Last Impressions Carotid Artery Ultrasound 07/03/17 0000 Signed Impressions: Service Date/Time: Monday, July 03, 2017 09:40 - CONCLUSION: Negative for hemodynamically significant stenosis. Jerrod Acevedo MD FACR Brain MRI 07/03/17 0000 Signed Impressions: Service Date/Time: Monday, July 03, 2017 21:32 - CONCLUSION: 1. Unremarkable MRI of the brain. Left parietal scalp swelling/hemorrhage. No abnormal enhancement. No recent infarct. Reggie Bella MD CT Angiography 07/02/17 1651 Signed Impressions: Service Date/Time: June 17:16 - CONCLUSION: No evidence of pulmonary embolism Fred Dias MD Maxillofacial CT 2/15/18 1530 Signed Impressions: Service Date/Time: June 16:00 - CONCLUSION: No evidence of facial bone fracture Fred Dias MD Head CT 07/02/171529 Signed Impressions: Service Date/Time: June 16:00 - CONCLUSION: No acute intracranial process. Fred Dias MD Chest X-Ray 07/02/171529 Signed Impressions: Service Date/Time: June 15:34 - CONCLUSION: No acute disease. Andrew Lawrence MD Cervical Spine CT [id number]/02/171529 Signed Impressions: Service Date/Time: June 16:00 - CONCLUSION: 1. Moderate degenerative disease at C5-6. 2. No evidence of acute bony or soft tissue abnormality. 3. Normal cervical alignment. Andrew Lawrence MD Objective Remarks GENERAL: Young female, lying in bed, awake, alert, appears comfortable. EYES: EOMI CARDIOVASCULAR: Regular rate and rhythm. no murmurs RESPIRATORY: Clear to auscultation. Breath sounds equal bilaterally. GASTROINTESTINAL: Abdomen soft, non-tender, nondistended. Extremities: No edema. No obvious deformities. MUSCULOSKELETAL: grossly intact . moves extremities. NEUROLOGICAL: Awake and alert. No obvious cranial nerve deficits. No facial droop nor slurred speech noted. PSYCHIATRIC: Appropriate mood and affect; insight and judgment normal. A/P Problem List: (1) NSTEMI, initial episode of care ICD Code: I21.4 - Non-ST elevation (NSTEMI) myocardial infarction (2) Syncope and collapse ICD Code: R55 - Syncope and collapse (3) Syncope anginosa ICD Code: I20.8 - Other forms of angina pectoris (4) Concussion ICD Code: S06.0X9A - Concussion with loss of consciousness of unspecified duration, initial encounter Assessment and Plan 51-year-old white female being admitted for syncope Syncope - serial trop elevated. Dr. Pires evaluated the pt and recommends a neuro eval first. Pt denies any chest pains. Aspirin given, but was held due to epistaxis and hx w/ substantial cranial contusions. I did reach out to Dr. Garcia, and he is okay for me to restart the aspirin.CT head negative. Ultrasound of carotids is negative for stenosis. MRI reviewed and is negative for acute process. -orthostatic v/s overall negative. -CT angiogram is negative for pulmonary embolism,. s/p fluid bolus. -EEG and 2D echo have been ordered however not yet available. Amnesia 2/2 possible concussion - CT head neg. B12, TSH levels wnl -Appreciate input from neurology. - fall precautions - neurochecks w/ telemetry given amnesia to monitor for signs of ICP Facial contusion w/ epistaxis - possibly fx not seen on CT vs soft tissue contusion/tear within nostrils; monitor; will hold any further doses of aspirin for now until cleared by neurology SCDs Discharge Planning transfer to regular floor. 2D echo and EEG pending. awaiting final recs from neuro and cards Frances Knapp MD Jul 04, 2017 08:36
[2017-07-04] MEDS ORDERED: ASPIRIN 325 MG TAB PO SCH (09:00)
[2017-07-04] MEDS ORDERED: HEPARIN SODIUM - IV 10,000 UNITS/10 ML VIAL ONE (16:35)
[2017-07-04] MEDS ORDERED: HEPARIN-NS/PF FLUSH BAG 2,000 ML IV FLUSH ONE (16:35)
[2017-07-04] MEDS ORDERED: NITROGLYCERIN INJ 0 ML ONE (16:35)
--- NOTE | 2017-07-04 17:04 | ECHRPT ---
Indication: Syncope/NSTEMI CONCLUSIONS Normal left ventricular size and wall thickness. The left ventricular systolic function is normal wi th an estimated ejection fraction in the range of 60-65%. Left ventricular diastolic function parameters a re normal. There is trace tricuspid regurgitation. The estimated pulmonary arterial pressure is 38.9 mmHg. BP: 120 / 67 HR: 72 Rhythm: Sinus MEASUREMENTS (Male / Female) Normal Values Technical Quality:Fair 2D ECHO LV Diastolic Diameter PLAX 4.3 cm 4.2 - 5.9 / 3.9 - 5.3 cm LV Systolic Diameter PLAX 3.2 cm IVS Diastolic Thickness 1.1 cm 0.6 - 1.0 / 0.6 - 0.9 cm LVPW Diastolic Thickness 1.1 cm 0.6 - 1.0 / 0.6 - 0.9 cm LV Relative Wall Thickness 0.5 LVOT Diameter 2.1 cm M-MODE Aortic Root Diameter MM 2.7 cm LA Systolic Diameter MM 3.5 cm LA Ao Ratio MM 1.3 AV Cusp Separation MM 2.0 cm DOPPLER AV Peak Velocity 117.0 cm/s AV Peak Gradient 5.5 mmHg LVOT Peak Velocity 78.0 cm/s LVOT Peak Gradient 2.4 mmHg AV Area Cont Eq pk 2.3 cm Mitral E Point Velocity 83.9 cm/s Mitral A Point Velocity 70.6 cm/s Mitral E to A Ratio 1.2 LV E' Lateral Velocity 12.0 cm/s Mitral E to LV E' Lateral Ratio 7.0 LV E' Septal Velocity 9.4 cm/s Mitral E to LV E' Septal Ratio 9.0 TR Peak Velocity 269.0 cm/s TR Peak Gradient 28.9 mmHg Right Atrial Pressure 10.0 mmHg Pulmonary Artery Systolic Pressu 38.9 mmHg Right Ventricular Systolic Press 38.9 mmHg FINDINGS LEFT VENTRICLE Normal left ventricular size and wall thickness. The left ventricular systolic function is normal wi th an estimated ejection fraction in the range of 60-65%. Left ventricular diastolic function parameters a re normal. RIGHT VENTRICLE Normal right ventricular size and systolic function. LEFT ATRIUM The left atrial size is normal. RIGHT ATRIUM The right atrial size is normal. ATRIAL SEPTUM Normal atrial septal thickness without atrial level shunting by limited color doppler interrogation. AORTA The aortic root and proximal ascending aorta are normal in size on limited imaging. MITRAL VALVE Structurally normal mitral valve. No mitral valve stenosis or regurgitation. AORTIC VALVE Trileaflet aortic valve. No aortic valve stenosis or regurgitation. TRICUSPID VALVE There is moderate tricuspid regurgitation. The estimated pulmonary arterial pressure is 38.9 mmHg. PULMONARY VALVE No pulmonary valve regurgitation or stenosis. VESSELS The inferior vena cava is normal in size. PERICARDIUM No pericardial effusion. Maximilian Pires MD, FACC, [facility] (Electronically Signed) Final Date:04 July 2017 17:03
[2017-07-04] MEDS ORDERED: MIDAZOLAM HCL 2 MG/2 ML VIAL ONE (17:14)
[2017-07-04] MEDS ORDERED: MISC INFORMATION XX ONE (18:00)
[2017-07-04] MEDS ORDERED: SODIUM CHLORIDE 0.9% FLUSH 10 ML FLUSH IV FLUSH PRN (18:00)
[2017-07-04] MEDS ORDERED: BACITRACIN OINT 0.9 GM PKT TOP ONE (18:00)
--- NOTE | 2017-07-04 19:05 | HHI.DS ---
Discharge Summary Admission Date Jul 02, 2017 at 18:26 Discharge Date: Jul 04, 2017 Admitting Diagnosis Syncope, elevated troponin, and concussion (1) NSTEMI, initial episode of care ICD Code: I21.4 - Non-ST elevation (NSTEMI) myocardial infarction (2) Syncope and collapse ICD Code: R55 - Syncope and collapse (3) Concussion ICD Code: S06.0X9A - Concussion with loss of consciousness of unspecified duration, initial encounter Procedures cardiac cath Brief History - From Admission 51-year-old white female being admitted for possible N STEMI Patient was in her usual state of health until earlier this morning when she bent down and her son's bathroom to picker/puller some towels and felt very lightheaded. She stood up and ambulated to the kitchen but still felt very lightheaded and then she has a poor recollection of what happened after that. She remembers waking up with a vague memory where she was dazed state lying in bed and somehow being able to ambulate over to the bathroom to vomit some dark emesis, denies any bloody component. Patient then went over to a chair and sat down and eventually she says she is able to fully regain consciousness and sharpness. She noted that she had some pain in the back of her head and noted a bruise and also noted a very red nose as well. She does report having some bloody drainage from her left nostril temporarily that self resolved. Patient denies having any shortness of breath, chest pain, or palpitations before during or after this entire episode. She denies any tongue biting, urinary incontinence, or fecal incontinence. She denies having any focal numbness, tingling, or weakness in any of her extremities. Denies having any acute unilateral visual field changes or vision loss. Denies any abdominal pain. CBC/BMP: 07/03/17 0135 07/03/17 0135 Significant Findings Laboratory Tests Test 07/02/17 15:50 07/02/17 20:20 07/02/17 23:15 07/03/17 01:35 White Blood Count 11.4 TH/MM3 (4.0-11.0) Neutrophils (%) (Auto) 88.4 % (16.0-70.0) Lymphocytes (%) (Auto) 7.9 % (9.0-44.0) Neutrophils # (Auto) 10.1 TH/MM3 (1.8-7.7) Lymphocytes # (Auto) 0.9 TH/MM3 (1.0-4.8) Activated Partial Thromboplast Time 23.8 SEC (24.3-30.1) Estimat Glomerular Filtration Rate 62 ML/MIN (>89) 62 ML/MIN (>89) Troponin I 0.19 NG/ML (0.02-0.05) 0.14 NG/ML (0.02-0.05) 0.07 NG/ML (0.02-0.05) Red Blood Count 3.90 MIL/MM3 (4.00-5.30) Hematocrit 33.7 % (35.0-46.0) Monocytes (%) (Auto) 9.1 % (0.0-8.0) Eosinophils (%) (Auto) 4.4 % (0.0-4.0) Calcium Level 8.2 MG/DL (8.5-10.1) Potassium Level 3.4 MEQ/L (3.5-5.1) Imaging Last Impressions Carotid Artery Ultrasound 07/03/17 0000 Signed Impressions: Service Date/Time: Monday, July 03, 2017 09:40 - CONCLUSION: Negative for hemodynamically significant stenosis. Jerrod Acevedo MD FACR Brain MRI 07/03/17 0000 Signed Impressions: Service Date/Time: Monday, July 03, 2017 21:32 - CONCLUSION: 1. Unremarkable MRI of the brain. Left parietal scalp swelling/hemorrhage. No abnormal enhancement. No recent infarct. Reggie Bella MD CT Angiography 07/02/17 1651 Signed Impressions: Service Date/Time: June 17:16 - CONCLUSION: No evidence of pulmonary embolism Fred Dias MD Maxillofacial CT 07/02/17 1530 Signed Impressions: Service Date/Time: June 16:00 - CONCLUSION: No evidence of facial bone fracture Fred Dias MD Head CT 07/02/17 1530 Signed Impressions: Service Date/Time: June 16:00 - CONCLUSION: No acute intracranial process. Fred Dias MD Chest X-Ray 07/02/17 1530 Signed Impressions: Service Date/Time: June 15:34 - CONCLUSION: No acute disease. Andrew Lawrence MD Cervical Spine CT 07/02/17 1530 Signed Impressions: Service Date/Time: June 16:00 - CONCLUSION: 1. Moderate degenerative disease at C5-6. 2. No evidence of acute bony or soft tissue abnormality. 3. Normal cervical alignment. Andrew Lawrence MD PE at Discharge GENERAL: Young female, lying in bed, awake, alert, appears comfortable. EYES: EOMI CARDIOVASCULAR: Regular rate and rhythm. no murmurs RESPIRATORY: Clear to auscultation. Breath sounds equal bilaterally. GASTROINTESTINAL: Abdomen soft, non-tender, nondistended. Extremities: No edema. No obvious deformities. MUSCULOSKELETAL: grossly intact . moves extremities. NEUROLOGICAL: Awake and alert. No obvious cranial nerve deficits. No facial droop nor slurred speech noted. PSYCHIATRIC: Appropriate mood and affect; insight and judgment normal. Hospital Course Syncope - serial trop elevated. Dr. Pires evaluated the pt and pt is s/p cardiac cath which per RN report was neg (official report not yet available). Discussed w Dr. Pires and pt is cleared from his standpoint for discharge today. He recommended holding off on any ASA x 2 weeks due to left parietal scalp swelling /hemorrhage. He would like to see the pt in his office on thursday. CT head negative. Ultrasound of carotids is negative for stenosis. MRI reviewed and is negative for acute process except for the left parietal scalp swelling/ hemorrhage noted. -orthostatic v/s overall negative. 2D echo w EF 60-65% -CT angiogram is negative for pulmonary embolism. s/p fluid bolus. Amnesia 2/2 possible concussion - CT head neg. B12, TSH levels wnl -Appreciate input from neurology. Discussed w Dr. Garcia and from his standpoing pt also has been cleared for discharge. Pt will f/u w neuro as an outpatient in 1-2 weeks. Pt Condition on Discharge: Stable Discharge Disposition: Discharge Home Discharge Time: > 30 minutes Discharge Instructions DIET: Follow Instructions for: Heart Healthy Diet Activities you can perform: Regular-No Restrictions Follow up Referrals: Cardiology - 07/06/17 Neurology - 2 Weeks Frances Knapp MD Jul 04, 2017 19:05
--- NOTE | 2017-07-04 19:19 | HHI.PR ---
Review/Management Diagnosis syncope with head trauma and probable mild concussion. Neurologically stable Plan ok from neurologic standpoint to discharge Diagnosis/Plan: Subjective Subjective Comments No acute events reported Active Medications Current Medications Medications (Trade) Dose Ordered Sig/Karen Route Start Time Stop Time Status Last Admin (Tylenol) 650 mg Q6HR PRN PO 07/03/17 09:30 07/03/17 15:43 (Aspirin) 325 mg DAILY PO 07/04/17 09:00 (NS Flush) 2 ml BID IV FLUSH 07/04/17 21:00 (NS Flush) 2 ml UNSCH PRN IV FLUSH 07/04/17 18:00 Allergies Allergies Coded Allergies codeine (Verified Allergy, Severe, TACHYCARDIA & RESP DISTRESS, 07/02/17) Exam I&O / VS 07/04/17 07/04/17 07/05/17 15:00 23:00 07:00 Intake Total 400 ml Balance 400 ml Intake Oral 400 ml # Voids 3 Vital Signs Date Time Temp Pulse Resp B/P (MAP) Pulse Ox O2 Delivery O2 Flow Rate FiO2 07/04/17 19:03 77 16 128/80 (96) 95 07/04/17 18:33 75 16 123/81 (95) 97 07/04/17 18:18 76 18 123/79 (94) 96 07/04/17 18:03 74 18 124/78 (93) 97 07/04/17 17:48 75 24 123/81 (95) 97 07/04/17 16:00 99.0 76 16 120/74 (89) 96 07/04/17 16:00 72 07/04/17 12:00 106 07/04/17 12:00 99.0 70 12 110/75 (87) 97 07/04/17 08:00 99.1 96 14 114/78 (90) 98 07/04/17 08:00 68 07/04/17 06:00 69 07/04/17 04:00 67 07/04/17 04:00 98.3 84 17 118/76 (90) 97 07/04/17 02:00 68 07/04/17 00:00 98.1 74 19 115/68 (84) 97 07/04/17 00:00 74 07/03/17 23:00 70 07/03/17 20:00 98.4 72 19 130/70 (90) 97 Exam Comments alert oriented, speech normal Cn normal motor -- no focal weakness Objective Radiology Results MRI brain is normal carotid US normal Diagnostic Tests EEG---normal Nabil Garcia MD PhD Jul 04, 2017 19:19
--- NOTE | 2017-07-04 19:28 | MG ---
cc: YUNIER CASTILLO Lab No: [id number] Date: 07/04/17 Age: Sex: F Race: TECHNIQUE: 17 channel EEG. DESCRIPTION: Background rhythm reveals symmetrical alpha rhythm. Frequency is 8-10 Hz. Amplitude is about 20-40 microvolts. There is the expected anterior decrement to the response. There are no lateralizing features identified and no epileptiform features are seen. There is rare muscle artifact present. Photic stimulation is done in a stepwise fashion with a normal driving response. INTERPRETATION: Normal EEG. MD CHELO Benites/STARR /7:09 PM /7:21 PM
[2017-07-04] MEDS ORDERED: IOHEXOL 350 MG/ML 50 ML BTL (for Cath Lab) OTHER ONE (20:51)
[2017-07-04] MEDS ORDERED: SODIUM CHLORIDE 0.9% FLUSH 10 ML FLUSH IV FLUSH SCH (21:00)
--- NOTE | 2017-07-05 18:54 | MA ---
cc: CALE ZIEGLER M.D. DATE: 07/04/2017. PROCEDURES PERFORMED: Left heart catheterization, left ventriculography and coronary angiography. INDICATIONS FOR THE PROCEDURE: NSTEMI. Syncope. Coronary artery disease. DESCRIPTION OF THE PROCEDURE IN DETAIL: The patient was brought to the cardiac catheterization laboratory and prepped and draped in the usual sterile fashion. 10 cc of 1% lidocaine was used to locally anesthetize the right common femoral artery. A 4-Slovak sheath was subsequently placed in the right common femoral artery. A 4-Slovak JR-4 and JL-4 catheters were used to perform left and right coronary angiography and left ventriculography. FINDINGS: LV pressures 126/4-9. Ejection fraction 70%. The right coronary artery is large and dominant. There is mild disease in the distal segment up to 10% to 20% angiographically. The left main coronary artery has no significant angiographically. The left circumflex has no significant disease angiographically. It gives off a large first obtuse marginal vessel. which approaches the apex and has no significant disease angiographically. There is no significant imaging of the AV groove left circumflex vessel beyond the first obtuse marginal vessel. I do not see any stump suggesting any sort of occlusion. I suspect this is normal anatomy. The left anterior descending is non-transapical and has mild disease in the proximal segment up to 5% to 10% angiographically. The first diagonal artery has an ostial 30% to 40% stenosis. It is a reference vessel diameter 2 mm in diameter. CONCLUSIONS: 1. Angiographically mild three-vessel coronary artery disease in a right dominant system as detailed above. 2. Hyperdynamic left ventricular systolic function with ejection fraction of 70%. 3. Low left ventricular end diastolic pressure suggestive of hypovolemia. 4. Recommend medical management for coronary artery disease, hydration, cardiac risk factor modification. I have instructed the patient myself personally to follow up with me in my office on Thursday, July 06, 2017. MD CHRISTINE Ball/STARR /5:34 PM /6:41 PM
== END 2017-07-04 20:52 | disposition home or self-care (01) | DRG 281 ==
LOC: PHED 15:15 → PHEDA 18:26 → N03B 23:19
PROVIDERS: ADMIT Hospitalist; ATTEND Hospitalist
PROC: 4A023N7 Measurement of Cardiac Sampling and Pressure, Left Heart, Percutaneous Approach (ICD-10-PCS; principal; 2017-07-04)
PROC: B2111ZZ Fluoroscopy of Multiple Coronary Arteries using Low Osmolar Contrast (ICD-10-PCS; 2017-07-04)
PROC: B2151ZZ Fluoroscopy of Left Heart using Low Osmolar Contrast (ICD-10-PCS; 2017-07-04)
DX: I21.4 Non-ST elevation (NSTEMI) myocardial infarction (principal); S06.0X1A Concussion with loss of consciousness of 30 minutes or less, initial encounter; R55 Syncope and collapse; S00.03XA Contusion of scalp, initial encounter; I25.119 Atherosclerotic heart disease of native coronary artery with unspecified angina pectoris; S00.31XA Abrasion of nose, initial encounter; W18.30XA Fall on same level, unspecified, initial encounter; Y93.9 Activity, unspecified; Y92.002 Bathroom of unspecified non-institutional (private) residence as the place of occurrence of the external cause; R04.0 Epistaxis; M54.9 Dorsalgia, unspecified; Z83.3 Family history of diabetes mellitus; Z82.49 Family history of ischemic heart disease and other diseases of the circulatory system; Z80.0 Family history of malignant neoplasm of digestive organs; R41.3 Other amnesia
CPT/HCPCS: 70450; 70486; 70553; 71045; 71275; 72125; 80048; 80053; 81001; 82550; 82552; 82607; 83735; 84443; 84484; 84702; 85025; 85610; 85730; 87641; 90471; 90714; 93005; 93306; 93458; 93880; 95819; 96360; 96361; A9579; C1769; C1893; J1644; J2250; J3010; J7030; Q9967